=== PATIENT | male | born 1940 | race Caucasian/White ===

== ENCOUNTER 2020-10-13 14:46 | Emergency (ER) | payer MEDICARE, SELFPAY ==
[2020-10-13 14:51] VITALS: BP 131/71; PULSE 87; RESP 21; TEMP 36.7; O2SAT 95; BMI 23.4
--- NOTE | 2020-10-13 15:14 | EKG12_ITS ---
Test Reason : SYNCOPE Blood Pressure : / mmHG Vent. Rate : 086 BPM Atrial Rate : 086 BPM P-R Int : 258 ms QRS Dur : 144 ms QT Int : 414 ms P-R-T Axes : 064 -78 085 degrees QTc Int : 495 ms Sinus rhythm with 1st degree A-V block Left axis deviation Non-specific intra-ventricular conduction block Inferior infarct , age undetermined Anterolateral infarct , age undetermined Abnormal ECG Confirmed by ABRAHAM RECINOS, ADAM ([id number]), editor continuity and script LARA MOURA ([id number]) on 10/17/2020 10:36:10 AM Referred By: YUMIKO Confirmed By:MEL ROSARIO MD
--- NOTE | 2020-10-13 15:14 | CT_ITS ---
STUDY: CT CERVICAL SPINE WITHOUT CONTRAST REASON FOR EXAM: Male, 80 years old. injury, trauma RADIATION DOSAGE (If Supplied By Facility): CTDIvol = ( 26.10 ) mGy, DLP = ( 558.98 ) mGycm TECHNIQUE: High resolution transaxial imaging was performed without contrast material. Sagittal and coronal images were reconstructed. Individualized dose optimization techniques were used for this CT. COMPARISON: None FINDINGS: Normal craniovertebral junction. Normal anterior atlantoaxial articulation. Normal odontoid process. There is straightening of the normal cervical lordosis. Normal vertebral bodies and posterior osseous elements. C2-3: Normal endplates. Normal disc height and morphology. Normal central canal and intervertebral neuroforamina. C3-4: Mild broad disc osteophyte complex with ankylosis of the disc space produces mild spinal stenosis but severe bilateral neural foraminal stenosis. C4-5: Moderate left facet hypertrophy. Mild broad disc osteophyte complex and bilateral adrenal hypertrophy produces mild spinal stenosis and moderate bilateral neural foraminal stenosis. C5-6: 2 mm retrolisthesis of C5 on C6 with a mild broad disc osteophyte complex produces moderate spinal stenosis and moderate bilateral neural foraminal stenosis. C6-7: Normal endplates. Normal disc height and morphology. Normal central canal and intervertebral neuroforamina. C7-T1: Normal endplates. Normal disc height and morphology. Normal central canal and intervertebral neuroforamina. Normal visualized soft tissue structures. CT/Spine Cervical without Contras IMPRESSION: No acute fracture. Electronically Signed: Jethro Fields MD at 16:29 EDT Tel , Service support ,
[2020-10-13 15:30] LABS: Absolute Lymphocyte Count 3.98 X10^3/uL (0.83-4.51); Absolute Neutrophil Count 4.1 X10^3/uL (2.0-7.7); Basophil# 0.07 X10^3/uL; Basophil% 0.8 % (0-1); Eosinophil# 0.24 X10^3/uL; Eosinophils% 2.6 % (0-5); Hematocrit 42.8 % (40-54); Hemoglobin 14.7 g/dL (13.0-16.5); Lymphocyte # 3.98 X10^3/ul (0.83-4.51); Lymphocyte % 43.1 % (19-41); Mean Corp Hgb Conc 34.3 g/dL (32-36); Mean Corpuscular Hgb 31.3 pg (27.0-32.0); Mean Corpuscular Volume 91.1 fL (80-94); Mean Platelet Vol. 9.7 fl (6.2-12.0); Monocyte# 0.84 X10^3/uL; Monocyte% 9.1 % (0-10); NRBC Flagged by Analyzer 0 % (0-5); Neutrophil # 4.06 X10^3/uL (2.7-7.7); Platelet Count 216 K/mm3 (150-450); RBC Distribution Width CV 13.2 % (11.6-14.6); RBC Distribution Width SD 44.9 fl (35.1-43.9); White Blood Count 9.2 K/mm3 (4.4-11.0)
--- NOTE | 2020-10-13 15:34 | CT_ITS ---
STUDY: CT BRAIN WITHOUT CONTRAST REASON FOR EXAM: Male, 80 years old. syncope, injury RADIATION DOSAGE (If Supplied By Facility): CTDIvol = ( 44.99 ) mGy, DLP = ( 812.98 ) mGycm TECHNIQUE: Transaxial CT imaging of the brain was performed without administration of intravenous contrast material. Individualized dose optimization techniques were used for this CT. COMPARISON: No relevant priors. FINDINGS: Normal soft tissue structures. Normal calvarium. Normal size ventricles and extra-axial spaces for the patient''s age. Normal white matter tracts of the cerebral hemispheres. Normal basal ganglia and thalami. Normal brainstem. Normal cerebellum. There is a small amount of subarachnoid hemorrhage within sulci of the anterior left parietal lobe. There is also increased attenuation along the tentorium worrisome for subdural hematoma. There are no findings of an acute ischemic infarction. Complete opacification of the left maxillary sinus consistent with chronic sinusitis. CT/Brain/Head without Contrast IMPRESSION: Acute subarachnoid hemorrhage in the anterior left parietal lobe and suspected acute subdural hematoma along the tentorium. N.B. : The above Results were Read Back by Jethro Fields MD to Astrid Ray and understanding confirmed on 10/13/2020 16:16:37 (ET). Electronically Signed: Jethro Fields MD at 16:18 EDT Tel , Service support ,
--- NOTE | 2020-10-13 15:37 | RAD_ITS ---
STUDY: X-RAY CHEST REASON FOR EXAM: Male, 80 years old. syncope TECHNIQUE: Single AP portable view of the chest. COMPARISON: None. FINDINGS: The lungs are clear and expanded. There is no demonstrated pleural abnormality. Normal size heart. Normal mediastinum and pierce. Normal visualized pulmonary arteries. Normal visualized aortic arch and descending thoracic aorta. Normal visualized thoracic spine. Normal visualized ribs, clavicles, and shoulders. There is no demonstrated abnormality of the visualized soft tissue structures of the upper abdomen. RAD/Chest 1 View (Portable) IMPRESSION: Normal x-ray examination of the chest. Electronically Signed: Jethro Fields MD at 16:29 EDT Tel , Service support ,
--- NOTE | 2020-10-13 15:38 | EX.ED.DYSGE1 ---
HPI History of Present Illness Chief Complaint: Syncope Informant: patient Narrative Narrative: Patient is an 80-year-old male that denies any past medical history presenting after syncopal episode. Patient states he was leaving the grocery store and then the next thing he remembers is he is being loaded into the EMS gurney. Patient did hit the back of his head. Is unsure when his last tetanus was. Patient denies any chest pain. He denies any recent shortness of breath or leg swelling. He states he does take 81 mg of aspirin daily. He notes he has not seen a doctor in years and has not had any cardiac evaluation for some time. Patient states he did have a stress test before hip surgery in 2017. He notes he has a history of vertigo but denies feeling dizziness at all the last few days. No other complaints at this time. [facility] Medical History Vertigo Home Medications aspirin [Aspir-81] 81 mg PO DAILY 10/13/20 [History Last Taken Unknown] Allergy/AdvReac Type Severity Reaction Status Date / Time No Known Allergies Allergy Verified 10/13/20 14:47 Surgical History H/O total hip arthroplasty Social History Smoking Status: Former smoker ROS ROS ED Constitutional Constitutional ED: Denies chills, fever(s) or malaise Eyes Eyes: Denies blurry vision or loss of vision ENT ENT ED: Denies rhinorrhea or sore throat Cardiovascular Cardiovascular: Denies chest pain or dizziness Respiratory/Chest Respiratory/Chest: Denies cough or dyspnea Gastrointestinal Gastrointestinal: Denies nausea or vomiting Genitourinary Genitourinary ED: Denies dysuria or hematuria Musculoskeletal Musculoskeletal: Denies arthralgias or myalgias Integumentary Reports Abrasions and rash; Denies wounds Neurologic Neurologic: Denies focal weakness, headache(s), paresthesias or weakness Psychiatric Psychiatric: Denies anxiety or behavioral changes EXAM Physical Exam Const Vital Signs: 10/13/20 14:51 10/13/20 14:55 10/13/20 15:31 Temperature 98.1 F Temperature Source Temporal Pulse Rate 87 Respiratory Rate 21 H Respiratory Effort Normal Non-Labored Respiratory Pattern Normal Blood Pressure 131/71 H Blood Pressure Mean 91 Pulse Ox 95 Oxygen Delivery Method Room Air Room Air 10/13/20 16:13 10/13/20 16:43 Temperature Temperature Source Pulse Rate 90 Respiratory Rate 15 Respiratory Effort Respiratory Pattern Blood Pressure 168/70 H Blood Pressure Mean 102 Pulse Ox 97 Oxygen Delivery Method Room Air Room Air Positive well nourished and well developed General Appearance ED: well developed HEENT Reports moist mucous membranes trauma; Negative for tenderness Eyes EOMs intact bilaterally Eyes Narrative: Pupils equally reactive to light. Right pupil is approximately 2 mm larger than the left. Neck supple Neck Narrative: No midline tenderness. No step-off sign. Normal range of motion. Chest Wall inspection of chest normal Resp normal respiratory effort and clear to auscultation bilaterally Cardio regular rate, regular rhythm and no murmurs GI normal to inspection, nondistended, normoactive bowel sounds Extremity normal to inspection Neuro oriented x3, CN's II-XII intact bilaterally and no sensory deficits noted Sensorium / Orientation: alert Motor Exam: strength 5/5 throughout Psych mental status grossly normal Skin Skin Narrative: Abrasion to the back of the scalp with active bleeding. MDM MDM MDM Narrative Medical decision making narrative: Patient is evaluated after what sounds like a syncopal episode and head injury. Patient not remember the event. The next thing he remembers is being in the gurney and being brought to the emergency room. He does not know who called 911. He is on 81 mg of aspirin daily. He currently has no complaints. He denies any headache. He does have a laceration to the back of his head. Tetanus is updated. CT shows a subarachnoid and likely subdural hemorrhage. In addition patient's troponin is elevated. His high sensitive troponin is 205.5. He has a bump in his BNP 320 with no EKG changes. Patient's D-dimer is significantly elevated 18.41. Patient does not have any acute EKG changes. Given intracranial hemorrhage patient will be transferred for neurosurgical evaluation. I do suspect that he could have a PE that is causing his syncopal events however I do not want to delay transfer by obtaining a CTA. In addition patient is not placed on any anticoagulation or given any aspirin because he has a head bleed. Case is also discussed with his son, David. Patient be transferred to [facility]. Report is given to ER physician, Dr. Duarte. Lab Data Labs: Laboratory Results - last 24 hr 10/13/20 10/13/20 10/13/20 14:25 14:25 14:25 WBC 9.2 RBC 4.70 Hgb 14.7 Hct 42.8 MCV 91.1 MCH 31.3 MCHC 34.3 RDW Std Deviation 44.9 H RDW Coeff of Pieter 13.2 Plt Count 216 MPV 9.7 Immature Gran % (Auto) 0.400 Neut % (Auto) 44.0 L Lymph % (Auto) 43.1 H Nuckolls % (Auto) 9.1 Eos % (Auto) 2.6 Baso % (Auto) 0.8 Absolute Neuts (auto) 4.1 Absolute Lymphs (auto) 3.98 Nucleated RBC % 0 D-Dimer Quant (PE/DVT) Sodium 135 L Potassium 4.2 Chloride 103 Carbon Dioxide 26.0 Anion Gap 6 BUN 23 H Creatinine 0.94 Estim Creat Clear Calc 72.87 Est GFR (MDRD) Af Amer 100 Est GFR (MDRD) Non-Af 82 BUN/Creatinine Ratio 24.5 H Glucose 101 Calcium 8.8 Troponin I High Sens 205.5 H* B-Natriuretic Peptide 320.0 H 10/13/20 15:45 WBC RBC Hgb Hct MCV MCH MCHC RDW Std Deviation RDW Coeff of Pieter Plt Count MPV Immature Gran % (Auto) Neut % (Auto) Lymph % (Auto) Nuckolls % (Auto) Eos % (Auto) Baso % (Auto) Absolute Neuts (auto) Absolute Lymphs (auto) Nucleated RBC % D-Dimer Quant (PE/DVT) 18.41 H* Sodium Potassium Chloride Carbon Dioxide Anion Gap BUN Creatinine Estim Creat Clear Calc Est GFR (MDRD) Af Amer Est GFR (MDRD) Non-Af BUN/Creatinine Ratio Glucose Calcium Troponin I High Sens B-Natriuretic Peptide Radiography Chest X-Ray - ED: 1 View, Read by ED Physician, Read by Radiologist and No Acute Disease Diagnostic Testing: Radiology Impression Cervical Spine CT 10/13/20 15:14 IMPRESSION: No acute fracture. Electronically Signed: Jethro Fields MD at 16:29 EDT Tel , Service support , Brain CT 10/13/20 15:34 IMPRESSION: Acute subarachnoid hemorrhage in the anterior left parietal lobe and suspected acute subdural hematoma along the tentorium. N.B. : The above Results were Read Back by Jethro Fields MD to Astrid Ray and understanding confirmed on 10/13/2020 16:16:37 (ET). Electronically Signed: Jetrho Fields MD at 16:18 EDT Tel , Service support , ADDENDUM: 10/13/20 1625 IMPRESSION: Acute subarachnoid hemorrhage in the anterior left parietal lobe and suspected acute subdural hematoma along the tentorium. N.B. : The above Results were Read Back by Jethro Fields MD to Astrid Ray and understanding confirmed on 10/13/2020 16:16:37 (ET). Electronically Signed: Jethro Fields MD at 16:18 EDT Tel , Service support , Chest X-Ray 10/13/20 15:37 IMPRESSION: Normal x-ray examination of the chest. Electronically Signed: Jethro Fields MD at 16:29 EDT Tel , Service support , Rhythm Strip Rhythm Strip: Sinus Rhythm Rate: 86 Ectopy: None EKG Initial EKG: Attestation: I personally reviewed and interpreted this EKG as follows: Interpretation: Sinus Rhythm Comments: Sinus rhythm with first-degree AV block at a rate of 86 GA interval is 258 QRS is 144 QTC is 495 Left axis deviation Normal ST segments Compared to prior EKG on 01/27/2016 patient is a more pronounced first-degree AV block and morphology changes to V2 but no other acute changes Prior EKG tracings: available for review Prior: Changed Critical Care Time Critical Care Time: Yes Critical care time (excluding procedures): 30-74 minutes (35), Discussing w/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
[2020-10-13 15:56] LABS: Anion Gap 6 (5-15); BUN 23 mg/dL (7-18); BUN/Creat Ratio 24.5 RATIO (10-20); Calcium,Total 8.8 mg/dL (8.5-10.1); Chloride 103 mmol/L (98-107); Creatinine, Serum 0.94 mg/dL (0.70-1.30); EST Glomerular Filtration Rate 82 mL/min (>60); Est Glom Filt Rate - Afr Amer 100 mL/min (>60); Estimated Creatinine Clearance 72.87 ml/min; Glucose 101 mg/dL (74-106); Potassium 4.2 mmol/L (3.5-5.1); Sodium Level 135 mmol/L (136-145); Troponin-I HS 205.5 pg/mL (3.0-78.5)
[2020-10-13] MEDS: Diphth,Pertuss(Acell),Tet Vac 0.5 ML Vial IM (16:12)
[2020-10-13 16:13] VITALS: BP 168/70; PULSE 90; RESP 15; O2SAT 97
[2020-10-13 16:34] LABS: D-Dimer Quantitative (DVT/PE) 18.41 FEU/ug/m (0.27-0.49)
--- NOTE | 2020-10-13 17:19 | CM.ED ---
SW Note Referral Source: Case Find Referral Reason: No primary care physician BECKA met with patient and his son. Patient confirmed that he doesn't have a Primary Care Physician (PCP). SW provided patient with handout on PCP providers through [facility]. No issues or concerns voiced. SW will remain available. Plan: List of Primary Care Physicians Nannette ÁLVAREZ
[2020-10-13 17:23] VITALS: BP 138/74; PULSE 97; RESP 20; O2SAT 97
== END 2020-10-13 17:30 | disposition short-term general hospital (02) ==
PROVIDERS: Emergency Provider Emergency Medicine
DX: S06.6X9A Traumatic subarachnoid hemorrhage with loss of consciousness of unspecified duration, initial encounter (principal); S06.5X9A Traumatic subdural hemorrhage with loss of consciousness of unspecified duration, initial encounter; X58.XXXA Exposure to other specified factors, initial encounter; Y93.9 Activity, unspecified; Y92.512 Supermarket, store or market as the place of occurrence of the external cause; Y99.9 Unspecified external cause status; S01.01XA Laceration without foreign body of scalp, initial encounter; Z23 Encounter for immunization; Z79.82 Long term (current) use of aspirin; Z87.891 Personal history of nicotine dependence; R77.8 Other specified abnormalities of plasma proteins; R79.89 Other specified abnormal findings of blood chemistry
CPT/HCPCS: 36415; 70450; 71045; 72125; 80048; 83880; 84484; 85025; 85379; 90715; 93005; 99285; A4216